=== PATIENT | female | born 1935 | race Caucasian/White ===

== ENCOUNTER → 2016-11-01 | Outpatient (CLI) | payer MEDICARE, MEDICAID ==
[~2016-11-01] MED LIST: ACID CONTROL150 MG PO; APRESOLINE25 MG PO; ASPIRIN81 MG PO; BETIMOL5 ML EYEBOTH; HALFPRIN81 MG PO; HYDRALAZINE HCL25 MG PO; IMDUR30 MG PO; ISOSORBIDE DINI30 MG PO; KLOR-CON M1010 MEQ PO; LASIX20 MG PO; LASIX40 MG PO; LEVOTHYROXINE25 MCG PO; LIPITOR80 MG PO; MOISTURIZING L473 ML TOP; NOVOLOG FL100 UNIT/1 SUBCUT; NOVOLOG100 UNIT/2 SUBCUT; STRESS FORMULA PO; SYNTHROID25 MCG PO; TIMOPTIC 0.5%1 EACH EYERT; TRAVATAN Z5 ML EYEBOTH; TRESIBA FL100 UNIT/1 SUBCUT; TYLENOL325 MG PO; VICTOZA 2-0.6 MG/0.1 SUBCUT; VITAMIN D-32000 UNI1 PO; VITAMIN D31000 UNI1 PO; ZANTAC300 MG PO; ZEBETA5 MG PO; ZINC50 MG PO
== END | disposition short-term general hospital (02) ==
LOC: CLVASC 14:06
DX: R09.89 Other specified symptoms and signs involving the circulatory and respiratory systems (principal)

== ENCOUNTER 2017-01-02 12:30 | Inpatient (IN) | payer MEDICARE, MEDICAID ==
[~2017-01-02] VITALS: Ht 162.6 cm; Wt 98.2 kg
[~2017-01-02 12:30] MED LIST changes: -ACID CONTROL150 MG PO; -APRESOLINE25 MG PO; -BETIMOL5 ML EYEBOTH; -HALFPRIN81 MG PO; -ISOSORBIDE DINI30 MG PO; -LASIX20 MG PO; -LEVOTHYROXINE25 MCG PO; -MOISTURIZING L473 ML TOP; -NOVOLOG100 UNIT/2 SUBCUT; -STRESS FORMULA PO; -TYLENOL325 MG PO; -VICTOZA 2-0.6 MG/0.1 SUBCUT; -VITAMIN D-32000 UNI1 PO; -ZINC50 MG PO
[2017-01-02] MEDS ORDERED: IMDUR30 MG PO (13:07)
[2017-01-02] MEDS ORDERED: LASIX40 MG PO (13:11)
[2017-01-02] MEDS ORDERED: HALFPRIN81 MG PO (13:12)
[2017-01-02] MEDS ORDERED: LIPITOR80 MG PO (13:12)
[2017-01-02] MEDS ORDERED: ZEBETA5 MG PO (13:13)
[2017-01-02] MEDS ORDERED: APRESOLINE25 MG PO (13:13)
[2017-01-02] MEDS ORDERED: ISOSORBIDE DINI30 MG PO (13:15)
[2017-01-02] MEDS ORDERED: KLOR-CON M1010 MEQ PO (13:15)
[2017-01-02] MEDS ORDERED: LEVOTHYROXINE25 MCG PO (13:16)
[2017-01-02] MEDS ORDERED: LASIX20 MG PO (13:16)
[2017-01-02] MEDS ORDERED: ACID CONTROL150 MG PO (13:18)
[2017-01-02] MEDS ORDERED: STRESS FORMULA PO (13:20)
[2017-01-02] MEDS ORDERED: BETIMOL5 ML EYEBOTH (13:21)
[2017-01-02] MEDS ORDERED: TRAVATAN Z5 ML EYEBOTH (13:22)
[2017-01-02] MEDS ORDERED: TRESIBA FL100 UNIT/1 SUBCUT (13:23)
[2017-01-02] MEDS ORDERED: VITAMIN D-32000 UNI1 PO (13:24)
[2017-01-02] MEDS ORDERED: ZINC50 MG PO (13:26)
[2017-01-02] MEDS ORDERED: NOVOLOG100 UNIT/2 SUBCUT ×2 (13:28→13:30)
[2017-01-02] MEDS ORDERED: TYLENOL325 MG PO (13:31)
[2017-01-02] MEDS ORDERED: MOISTURIZING L473 ML TOP (13:34)
[2017-01-04] MEDS ORDERED: KLOR-CON M1010 MEQ PO (10:19)
[2017-01-04] MEDS ORDERED: VICTOZA 2-0.6 MG/0.1 SUBCUT ×3 (10:26→10:28)
== END 2017-01-04 12:10 | DRG 638 ==
LOC: IP 12:30
PROVIDERS: ADMIT Family Medicine
DX: E11.65 Type 2 diabetes mellitus with hyperglycemia (principal); I13.0 Hypertensive heart and chronic kidney disease with heart failure and stage 1 through stage 4 chronic kidney disease, or unspecified chronic kidney disease; E11.22 Type 2 diabetes mellitus with diabetic chronic kidney disease; N18.9 Chronic kidney disease, unspecified; I50.9 Heart failure, unspecified; D63.1 Anemia in chronic kidney disease; I25.2 Old myocardial infarction; I25.10 Atherosclerotic heart disease of native coronary artery without angina pectoris; Z86.718 Personal history of other venous thrombosis and embolism; H40.9 Unspecified glaucoma; G47.00 Insomnia, unspecified; G47.33 Obstructive sleep apnea (adult) (pediatric); I87.2 Venous insufficiency (chronic) (peripheral); K29.50 Unspecified chronic gastritis without bleeding; E55.9 Vitamin D deficiency, unspecified; D05.92 Unspecified type of carcinoma in situ of left breast; E78.5 Hyperlipidemia, unspecified; I83.90 Asymptomatic varicose veins of unspecified lower extremity; Z79.4 Long term (current) use of insulin
CPT/HCPCS: J1650; J1815

== ENCOUNTER → 2017-01-10 | Outpatient (CLI) | payer MEDICARE, MEDICAID ==
[~2017-01-10] MED LIST changes: +ACID CONTROL150 MG PO; +APRESOLINE25 MG PO; +BETIMOL5 ML EYEBOTH; +HALFPRIN81 MG PO; +ISOSORBIDE DINI30 MG PO; +LASIX20 MG PO; +LEVOTHYROXINE25 MCG PO; +MOISTURIZING L473 ML TOP; +NOVOLOG100 UNIT/2 SUBCUT; +STRESS FORMULA PO; +TYLENOL325 MG PO; +VICTOZA 2-0.6 MG/0.1 SUBCUT; +VITAMIN D-32000 UNI1 PO; +ZINC50 MG PO
== END | disposition short-term general hospital (02) ==
LOC: CLCARD 01-03 15:22
DX: I13.0 Hypertensive heart and chronic kidney disease with heart failure and stage 1 through stage 4 chronic kidney disease, or unspecified chronic kidney disease (principal); I50.42 Chronic combined systolic (congestive) and diastolic (congestive) heart failure; E11.22 Type 2 diabetes mellitus with diabetic chronic kidney disease; N18.9 Chronic kidney disease, unspecified; E66.9 Obesity, unspecified; G47.33 Obstructive sleep apnea (adult) (pediatric); E78.5 Hyperlipidemia, unspecified; Z95.5 Presence of coronary angioplasty implant and graft